=== PATIENT | male | born 2000 | race Caucasian/White ===

== ENCOUNTER 2021-11-19 10:12 | Outpatient (RCR) | payer OTHER | END 2021-11-22 | LOC: WSOH | DX: S39.012A Strain of muscle, fascia and tendon of lower back, initial encounter (principal); S80.02XA Contusion of left knee, initial encounter; W01.0XXA Fall on same level from slipping, tripping and stumbling without subsequent striking against object, initial encounter; Y99.0 Civilian activity done for income or pay; Z90.89 Acquired absence of other organs ==

== ENCOUNTER 2023-11-10 13:29 | Inpatient (IN) | payer OTHER ==
[~2023-11-10] VITALS: Ht 182.9 cm; Wt 85.1 kg
[2023-11-10] VITALS (323 sets, daily range): BP systolic 139–157; BP diastolic 91–95; PULSE 108–115; TEMP 99–100.9; O2SAT 88–99
[2023-11-10] MEDS ORDERED: LORazepam 2 MG/ML 1 ML VIAL IV PRN (14:45)
[2023-11-10] MEDS ORDERED: Acetaminophen 325 MG TAB PO PRN (14:45)
[2023-11-10] MEDS ORDERED: NS 1,000 ML IV SCH (14:45)
[2023-11-10] MEDS ORDERED: Ondansetron 4 MG/2 ML VIAL IV PRN (14:45)
[2023-11-10] MEDS ORDERED: Morphine 4 MG/ML VIAL IV PRN (15:30)
[2023-11-10 16:09] LABS: INR 1.3 (0.8-3.0); PROTHROMBIN TIME 13.7 SECONDS (9.7-12.8)
[2023-11-10 16:17] LABS: PARTIAL THROMBOPLASTIN TIME 28.3 SECONDS (26.0-37.0)
[2023-11-10] MEDS ORDERED: Multivitamin TAB PO SCH (17:00)
--- NOTE | 2023-11-10 20:00 | NUR ---
PT RESTING IN BED WITH BOTHER AT HIS BEDSIDE. HE IS A&O X4 AND REPORTS PAIN 7-8/10 TO ABDOMEN AND REPORTS HE IS UNSURE IF HE IS PASSING GAS. ENCOURAGED TO MONITOR AND REPORT TO THE NURSE. BSAX4. VSS WITH FAST HR. ASSESSMENTS COMPLETED AT THIS TIME AND HE DENIES ADDITIONAL NEEDS. CARE PLAN REVIEWED, CALL LIGHT IN REACH, AND BED IN LOW POSITION AT THIS TIME.
[2023-11-10] MEDS ORDERED: Thiamine 100 MG TAB PO SCH (21:00)
[2023-11-11] VITALS (661 sets, daily range): BP systolic 128–143; BP diastolic 79–90; PULSE 100–117; TEMP 98.2–100.9; O2SAT 87–99
[2023-11-11 04:42] LABS: BASO % 0.2 % (0.0-2.0); EOS % 0.1 % (0.0-4.0); GRAN # 14.6 K/mm3 (1.4-6.5); HEMATOCRIT 44.3 % (42.0-52.0); HEMOGLOBIN 15.7 g/dl (13.5-18.0); LYMPH # 0.8 K/mm3 (1.2-3.4); MEAN CELL VOLUME 86 fl (80.0-100.0); MEAN CORPUSCULAR HEMOGLOBIN 31 pg (27-31); MEAN CORPUSCULAR HGB CONC 35 g/dl (33.0-37.0); MEAN PLATELET VOLUME 8.6 fl (7.4-10.4); MONO % 6.2 % (1.7-9.3); PLATELET COUNT 186 K/mm3 (130-400); RED BLOOD COUNT 5.14 M/mm3 (4.20-5.60); REDCELL DISTRIBUTION WIDTH-CV 11.8 % (11.5-14.5)
[2023-11-11 05:02] LABS: CALCIUM 8.1 mg/dL (8.4-10.2); CHOLESTEROL RISK RATIO 3.4; CREATININE, serum 0.75 mg/dL (0.72-1.25); POTASSIUM 3.9 mmol/L (3.5-4.5)
[2023-11-11] MEDS ORDERED: *Potassium Replacement Protocol MC SCH (05:30)
[2023-11-11] MEDS ORDERED: Potassium Chloride 100 ML IV SCH (05:30)
[2023-11-11] MEDS ORDERED: Folic Acid 1 MG TAB PO SCH (09:00)
--- NOTE | 2023-11-11 10:24 | NUR ---
patient alert and oriented. laying in bed. patient rated pain at 9/10 earlier this am.Morphine was given. patient abdomen has some swelling on the left upper and lower quadrant. patient reports pain with minimal pressure to that area. patient reports feeling bloated and intermitten mild nasea. no tremors observed or felt when patient was touched.call light within reach.
--- NOTE | 2023-11-11 12:30 | NUR ---
PATIENT ARRIVED FROM ICU IN STABLE CONDITION, AWAKE AND ALERT, PATIENT DENIES ANY NEEDS OR COMPLAINTS AT THIS TIME. BED ALARM ON, CALL LIGHT WITHIN REACH.
--- NOTE | 2023-11-11 12:45 | NUR ---
Patient transfered to medical. receiving nurse was given patient paperwork. patient belongings and wallet and phonewith sander and buffer was taken with his belongings aswell. patient was told and he observed where his wallet was placed inside belongings bag.
--- NOTE | 2023-11-11 17:00 | NUR ---
RH IV REMOVED D/T LEAK
--- NOTE | 2023-11-11 18:19 | NUR ---
PATIENT OUT OF SHOWER, BACK IN BED, A&OX4. TELE RECONNECTED.
--- NOTE | 2023-11-11 18:50 | NUR ---
PATIENT RESTING IN BED LISTENING TO MUSIC ON CELL PHONE WIHT TV OFF WITH NO ACUTE DISTRESS NOTED. PATIENT ON ROOM AIR. ASSESSMENT COMPLETED. PATIENT TOLERATED WELL. PATIENT C/O PAIN. PATIENT STATES PAIN LEVEL IS 6 ON SCALE OF 0 TO 10. PATIENT VERBALIZED UNDERSTANDING THAT PAIN MEDICATION WOULD BE GIVEN. PATIENT REQUESTED APPLE JUICE. PATIENT DENIES ANY OTHER NEEDS AT PRESENT. BED IN LOW POSITION WITH WHEELS LOCKED WITH RAILS UP X2 AND CALL LIGHT WITHIN REACH. BED ALARM ON.
[2023-11-12] VITALS (12 sets, daily range): BP systolic 111–137; BP diastolic 67–85; PULSE 76–110; TEMP 97.5–101.2
--- NOTE | 2023-11-12 01:05 | NUR ---
PATIENT RESTING IN BED WITH TV OFF WITH NO FAMILY PRESENT WITH NO ACUTE DISTRESS NOTED. PATIENT ON ROOM AIR. PATIENT C/O PAIN. IV MORPHINE GIVEN PER MD ORDER. PATIENT STATES PAIN LEVEL IS 8 ON SCALE OF 0 TO 10. PATIENT TOLERATED WELL. PATIENT DENIES ANY OTHER NEEDS. BED IN LOW POSITION WITH WHEELS LOCKED WITH RAILS UP X2 AND CALL LIGHT WITHIN REACH.
--- NOTE | 2023-11-12 07:45 | NUR ---
PATINET AWAKE AND ALERT, SITTING UP IN BED. PATIENT DENIES ANY NEEDS OR COMPLAINTS AT THIS TIME. CALL LIGHT WITHIN REACH.
[2023-11-12 09:26] LABS: CALCIUM 8.1 mg/dL (8.4-10.2); CREATININE, serum 0.72 mg/dL (0.72-1.25); POTASSIUM 3.5 mmol/L (3.5-4.5)
[2023-11-12] MEDS ORDERED: Potassium Bicarbonate/Citrate 20 MEQ Effervescent TAB PO SCH (09:45)
--- NOTE | 2023-11-12 11:00 | NUR ---
MD INFORMED PATIENT IS NOT SCORING ON HIS CIWA PROTOCOL. PER RN CAN DC CIWA PROTOCOLS
--- NOTE | 2023-11-12 11:03 | NUR ---
SW met with patient to complete intake. Patient provides that he lives with his parents in [facility], next of kin noted is mother Marilyn Cain [phone], ADL's independent, DME not utilized, and no home health services are utilizes. Patient provides that he does not have a PCP and was provided documentation for his review to obtain one. Patient provides that he does not have a DPOA\HC at this time and does not wish to appoint one, and plans to return to his home upon DC. BHANU will continue to follow. DC plan: home
[2023-11-12] MEDS ORDERED: oxyCODONE 5 MG TAB PO PRN (11:15)
--- NOTE | 2023-11-12 12:30 | NUR ---
PATIENT VOICES BETTER PAIN CONTROL WITH OXYCODONE. CALL LIGHT WITHIN REACH. PATINET DENIES ANY NEEDS OR COMPLAINTS AT THS TIME.
--- NOTE | 2023-11-12 19:41 | NUR ---
Patient called c/o heartburn. Is up to shower at this time. Spoke with DORIS Evans and new orders received and initiated.
--- NOTE | 2023-11-12 20:09 | NUR ---
Report from PCT of temp of 101.2. Tylenol given per dr order. Will monitor temp.
[2023-11-12] MEDS ORDERED: Pantoprazole 40 MG in NS 10 ML IV SCH (21:00)
--- NOTE | 2023-11-12 23:18 | NUR ---
Called by PCT stating patients O2 sat between 80-88 on room air. This nurse to room and patients O2 saturation 78% on room air. Patient states he does have issues at night with it dropping. Placed on 2L/NC with increase of O2 saturation to 94%. Notified RT. Will monitor.
[2023-11-13] VITALS (7 sets, daily range): BP systolic 111–142; BP diastolic 68–83; PULSE 80–117; TEMP 98.2–99.8
--- NOTE | 2023-11-13 00:32 | NUR ---
Patient resting eyes closed. No s/s of pain or discomfort noted. Will monitor.
--- NOTE | 2023-11-13 02:30 | NUR ---
Patient called with c/o abdominal pain-described as sharp intermittent cramping. Oxycodone/tylenol given per dr order. WIll monitor.
--- NOTE | 2023-11-13 06:19 | NUR ---
Patient received oxucodone severa times this shift for pain to abdomen. Denied nausea/shortness of breath. Did c/o heartburn-states he has been diagnosed in the past with GERD. New orders initiated for protonix. O2@2L/NC due to low saturation during sleep. Right AC INT with NS@100ml/hr infusing without difficulty. Denies current needs. Wilman light in reach. Will monitor.
[2023-11-13 06:22] LABS: BASO # 0.1 K/mm3 (0.0-0.2); BASO % 0.5 % (0.0-2.0); EOS # 0.1 K/mm3 (0.0-0.7); EOS % 0.8 % (0.0-4.0); GRAN # 10.3 K/mm3 (1.4-6.5); GRAN % 78.1 % (42.2-75.2); HEMATOCRIT 39.3 % (42.0-52.0); LYMPH # 1.3 K/mm3 (1.2-3.4); LYMPH % 9.9 % (20.0-51.0); MEAN CELL VOLUME 86 fl (80.0-100.0); MEAN CORPUSCULAR HEMOGLOBIN 31 pg (27-31); MEAN CORPUSCULAR HGB CONC 36 g/dl (33.0-37.0); MEAN PLATELET VOLUME 8.4 fl (7.4-10.4); MONO # 1.3 K/mm3 (0.1-0.6); MONO % 9.7 % (1.7-9.3); PLATELET COUNT 226 K/mm3 (130-400); RED BLOOD COUNT 4.56 M/mm3 (4.20-5.60); REDCELL DISTRIBUTION WIDTH-CV 11.9 % (11.5-14.5)
[2023-11-13 06:49] LABS: ALBUMIN 2.2 gm/dL (3.5-5.0); BILIRUBIN,TOTAL 0.9 mg/dL (0.2-1.2); CALCIUM 8.1 mg/dL (8.4-10.2); CREATININE, serum 0.73 mg/dL (0.72-1.25); PHOSPHOROUS 2.4 mg/dL (2.3-4.7); POTASSIUM 3.6 mmol/L (3.5-4.5); TOTAL PROTEIN 5.4 gm/dL (6.2-8.1)
--- NOTE | 2023-11-13 06:58 | NUR ---
Bedside report given to EVARISTO Taylor.
[2023-11-13] MEDS ORDERED: Potassium Bicarbonate/Citrate 20 MEQ Effervescent TAB PO SCH (08:00)
--- NOTE | 2023-11-13 09:00 | NUR ---
PATIENT RESTING IN BED UPON ENTERING ROOM. MORNING MEDICATIONS ADMINISTERED. SHIFT ASSESSMENT COMPLETED. PATIENT COMPLAINS OF MODERATE ABDOMINAL PAIN THAT GETS WORSE WITH MOVEMENT. IVF INFUSING. CALL LIGHT WITHIN REACH. CONTINUING TO MONITOR.
--- NOTE | 2023-11-13 10:56 | NUR ---
long term care social worker was informed pt needs a PCP. SW reviewed weekend notes and saw a PCP list was given. SW followed up with pt whom reports they are unsure where it is. SW asked what city pt would like to be seen in. Pt chose [place] as he is moving to that area. SW informed Social Media Assistant Liz. Discharge Plan: Home
[2023-11-13] MEDS ORDERED: NS 1,000 ML IV SCH (15:30)
--- NOTE | 2023-11-13 20:37 | NUR ---
Assessment complete. A&Ox4. Denies nausea/shortness of breath. VS stable. C/O pain to abdomen-described as sharp intermittent cramping-oxycodone given per dr bassam. Left AC IV with NS@60ml/hr infusing without difficulty. Has been incontinent of stool. States he just couldnt make it to the bathroom. Patient up to shower at this time. Will monitor.
--- NOTE | 2023-11-13 21:16 | NUR ---
Patient c/o pain still-rating pain 6/10 still. Oxycodone given per dr order. Will monitor.
[2023-11-14] VITALS (12 sets, daily range): BP systolic 115–162; BP diastolic 55–88; PULSE 92–115; TEMP 98–100
--- NOTE | 2023-11-14 00:29 | NUR ---
Patient resting eyes closed. No s/s of pain or discomfort noted. Will monitor.
--- NOTE | 2023-11-14 02:35 | NUR ---
Patient requested pain meds but when this nurse went to room patient was sleeping. Med returned-will reassess.
[2023-11-14] MEDS ORDERED: NS 1,000 ML IV SCH (03:00)
--- NOTE | 2023-11-14 05:31 | NUR ---
Patient c/o pain to abdomen described as cramping-rating 6/10 on pain scale-oxycodone given per dr order. Tolerating full liquid diet but did have 2 loose stools. NS@60mls/hr to left SC INT infusing without difficulty. Received oxycodone x2 for pain with good pain control. Denies current needs. Call light in reach. Will monitor.
[2023-11-14 07:34] LABS: POTASSIUM 3.7 mmol/L (3.5-4.5)
[2023-11-14] MEDS ORDERED: Potassium Bicarbonate/Citrate 20 MEQ Effervescent TAB PO SCH (07:45)
[2023-11-14 07:58] LABS: BASO # 0.1 K/mm3 (0.0-0.2); BASO % 0.5 % (0.0-2.0); EOS # 0.1 K/mm3 (0.0-0.7); EOS % 0.9 % (0.0-4.0); GRAN # 9.8 K/mm3 (1.4-6.5); GRAN % 79.4 % (42.2-75.2); HEMATOCRIT 41.1 % (42.0-52.0); HEMOGLOBIN 14.7 g/dl (13.5-18.0); LYMPH % 8.4 % (20.0-51.0); MEAN CELL VOLUME 87 fl (80.0-100.0); MEAN CORPUSCULAR HEMOGLOBIN 31 pg (27-31); MEAN CORPUSCULAR HGB CONC 36 g/dl (33.0-37.0); MEAN PLATELET VOLUME 9.2 fl (7.4-10.4); MONO # 1.2 K/mm3 (0.1-0.6); MONO % 9.6 % (1.7-9.3); PLATELET COUNT 270 K/mm3 (130-400); RED BLOOD COUNT 4.73 M/mm3 (4.20-5.60); REDCELL DISTRIBUTION WIDTH-CV 11.8 % (11.5-14.5)
[2023-11-14 09:16] LABS: ALBUMIN 2.5 gm/dL (3.5-5.0); BILIRUBIN,TOTAL 0.9 mg/dL (0.2-1.2); CALCIUM 8.6 mg/dL (8.4-10.2); CREATININE, serum 0.75 mg/dL (0.72-1.25); TOTAL PROTEIN 6.2 gm/dL (6.2-8.1)
--- NOTE | 2023-11-14 18:49 | NUR ---
PATIENT RESTING IN BED WITH FRIEND AT BEDSIDE WITH TV ON WITH NO ACUTE DISTRESS NOTED. PATIENT ON ROOM AIR. ZOSYN INFUSING INTO LEFT AC WITH NO COMPLICATIONS NOTED. PATIENT CARE ASSUMED FROM AGUSTÍN Bone AT THIS TIME. PATIENT DENIES ANY NEEDS. BED IN LOW POSITION IH WHEELS LOCKED WITH RAILS UP X2 AND CALL LIGHT WITHIN REACH.
--- NOTE | 2023-11-14 19:50 | NUR ---
PATIENT RESTING IN BED WITH TV ON WITH FRIEND AT BEDSIDE. PATIENT ON ROOM AIR WITH NO ACUTE DISTRESS NOTED. ASSESSMENT AND MEDICATION ADMINISTRATION COMPLETED AT THIS TIME. PATIENT TOLERATED WELL. PATIENT ATE 100% OF DINNER TRAY AND TRAY REMOVED FROM ROOM. PATIENT REQUESTED ICE, WATER, AND APPLE JUICE. ALL GIVEN. PATIENT DENIES ANY OTHER NEEDS. BED IN LOW POSITION WITH WHEELS LOCKED WITH RAILS UP X2 AND CALL LIGHT WITHIN REACH.
--- NOTE | 2023-11-14 21:40 | NUR ---
PATIENT RESTING IN BED WITH TV ON WITH NO ACUTE DISTRESS NOTED. PATIENT ON ROOM AIR. ZOSYN COMPLETED AT THIS TIME. PATIENT C/O PAIN IN ABDOMEN. PATIENT STATES PAIN LEVEL IS 6/7 ON SCALE OF 0 TO 10. PO ROXICODONE GIVEN PER MD ORDER. PATIENT DENIES ANY OTHER NEEDS AT THIS TIME. BED IN LOW POSITION WITH WHEELS LOCKED WITH RAILS UP X2 AND CALL LIGHT WITHIN REACH.
[2023-11-15 00:30] VITALS: BP_SYST 115
[2023-11-15 03:43] VITALS: BP 125/72; PULSE 89; TEMP 98.4
[2023-11-15 04:00] VITALS: BP_SYST 125
[2023-11-15] MEDS ORDERED: Potassium Bicarbonate/Citrate 20 MEQ Effervescent TAB PO ONE (07:15)
[2023-11-15 07:29] VITALS: BP 125/88; PULSE 83; TEMP 97.8
--- NOTE | 2023-11-15 07:56 | NUR ---
Patient A&Ox4. VSS. IV CDI. Reports pain in abdomen, pain medication given when requested. Call light within reach
[2023-11-15] MEDS ORDERED: CIPRO 500MG TA500 MG PO (08:21)
[2023-11-15] MEDS ORDERED: ZOFRAN 4MG T4 MG/TAB PO (08:22)
[2023-11-15] MEDS ORDERED: FLAGYL500 MG PO (08:22)
[2023-11-15] MEDS ORDERED: NORCO 325 MG-51 TAB PO (08:22)
--- NOTE | 2023-11-15 08:46 | NUR ---
Discharge paperwork reviewed with the patient. Patient verbalized an understanding to follow doctors orders. Patient calling for a ride. No further needs expressed. Call light within reach
--- NOTE | 2023-11-15 10:12 | NUR ---
IV removed, tip intact, gauze and coban applied. Patient ambulated with personal belongings independently to awaiting vehicle. No further needs expressed.
== END 2023-11-15 10:12 | disposition home or self-care (01) | DRG 871 ==
LOC: IMCU 13:29 → ICU 15:15 → MEDICAL 15:15
PROVIDERS: Internal Medicine; Physician Assistant; ADMIT Internal Medicine
DX: A41.9 Sepsis, unspecified organism (principal); K85.20 Alcohol induced acute pancreatitis without necrosis or infection; R18.8 Other ascites; K56.7 Ileus, unspecified; R65.20 Severe sepsis without septic shock; F10.10 Alcohol abuse, uncomplicated; F17.210 Nicotine dependence, cigarettes, uncomplicated; E87.6 Hypokalemia; Z91.011 Allergy to milk products
CPT/HCPCS: A9284; C9113; J2270; J2405; J2543; J3480; J7030